=== PATIENT | female | born 1970 | race Caucasian/White ===

== ENCOUNTER 2018-07-08 08:01 | Day surgery (SDC) | payer MEDICARE, OTHER ==
[~2018-07-08 08:01] MED LIST: Lactated Ringers 1,000 ML IV SCH; Lidocaine 2% 5 ML SDV ONE; Midazolam 1 MG/ML 2 ML SDV ONE; Ondansetron 4 MG/2 ML SDV ONE; Propofol 200 MG/20 ML SDV ONE; Sodium Chloride 0.9% 10 ML Syringe FLUSH PRN; Sodium Chloride 0.9% 2.5 ML Syringe FLUSH PRN; ceFAZolin 2 GM in Premix Bag 1 BAG IV ONE; fentaNYL 250 MCG/5 ML SDV ONE
--- NOTE | 2018-07-08 08:55 | PCM.PREANE ---
Preanesthetic Assessment - Anesthesia/Transfusion/Family Hx Anesthesia History: Prior Anesthesia Without Reaction Other Type of Anesthesia Reaction Comment: DENIES ANY PROBLEMS WITH ANESTHESIA Family History of Anesthesia Reaction: No Transfusion History: Prior Transfusion Without Reaction Intubation History: Unknown - Review of Systems General: No Symptoms Pulmonary: No Symptoms Cardiovascular: No Symptoms Gastrointestinal: No Symptoms Neurological: No Symptoms Other: Reports: None - Physical Assessment O2 Sat by Pulse Oximetry: 94 Respiratory Rate: 15 Vital Signs: Last Vital Signs Temp 37.6 C 07/08/18 08:15 Pulse 88 07/08/18 08:15 Resp 15 07/08/18 08:15 BP 99/62 07/08/18 08:15 Pulse Ox 94 L 07/08/18 08:15 Height: 1.63 m Weight: 97.976 kg ASA Class: 3 Mental Status: Alert & Oriented x3 Airway Class: Mallampati = 3 Dentition: Reports: Normal Dentition Thyro-Mental Finger Breadths: 2 Mouth Opening Finger Breadths: 2 ROM/Head Extension: Full Lungs: Clear to Auscultation, Normal Respiratory Effort Cardiovascular: Regular Rate, Regular Rhythm - Allergies Allergies/Adverse Reactions: Allergies Allergy/AdvReac Type Severity Reaction Status Date / Time codeine Allergy Rash Verified 07/02/18 15:31 gluten Allergy Diarrhea Verified 07/02/18 15:31 ketorolac tromethamine Allergy Other Verified 07/02/18 15:31 [From Toradol] NSAIDS (Non-Steroidal Allergy Other Verified 07/02/18 15:31 Anti-Inflamma shellfish derived Allergy Diarrhea Verified 07/02/18 15:31 - Blood Blood Available: No - Anesthesia Plan Pre-Op Medication Ordered: None - Acknowledgements Anesthesia Type Planned: General Anesthesia Pt an Appropriate Candidate for the Planned Anesthesia: Yes Alternatives and Risks of Anesthesia Discussed w Pt/Guardian: Yes Pt/Guardian Understands and Agrees with Anesthesia Plan: Yes PreAnesthesia Questionnaire HEENT History: Reports: None Cardiovascular History: Reports: None Respiratory History: Reports: Sleep Apnea Other Respiratory History: uses CPAP Gastrointestinal History: Reports: Inflammatory Bowel Disease, Other (See Below ) (ulcerative colitis) Other Gastrointestinal History: has celiac disease Genitourinary History: Reports: None 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 (See Below) Other OB/BYN History: Menorrhagia Musculoskeletal History: Reports: Back Pain, Chronic, Fracture, Fibromyalgia, Neck Pain, Chronic, Osteoarthritis Other Musculoskeletal History: hx of fx wrist Neurological History: Reports: Other (See Below) Other Neuro History: 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, Arachnoiditis in mid and upper lumbar region, Meraolgia paresthetica , Nerve damage, 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, adhesions and scar tissue on spine due to surgeries Psychiatric History: Reports: Depression Endocrine/Metabolic History: Reports: Obesity/BMI 30+ Hematologic History: Reports: Blood Transfusion(s) Other Hematologic History: states had transfusion post evacuation of blood clot in back Immunologic History: Reports: None Oncologic (Cancer) History: Reports: None Dermatologic History: Reports: Other (See Below) Other Dermatologic History: Rosacia - Infectious Disease History Infectious Disease History: Reports: None - Past Surgical History Head Surgeries/Procedures: Reports: None GI Surgical History: Reports: Cholecystectomy Female Surgical History: Reports: Hysterectomy Neurological Surgical History: Reports: C-Spine, Lumbar Spine, Spinal Fusion, Other (See Below) Other Neurological Surgeries/Procedures: has had intrathecal pump implanted in abdomen for back pain Musculoskeletal Surgical History: Reports: Arthroscopic Knee, Other (See Below) Other Musculoskeletal Surgeries/Procedures:: evacuation of blood clot from lumbar spine 2 days post fusion - SUBSTANCE USE Smoking Status *Q: Never Smoker Recreational Drug Use History: No - HOME MEDS Home Medications: Home Meds Baclofen 15 mg PO BEDTIME 09/23/15 [History] Bupivacaine HCl/PF [Bupivacaine 0.25% Pump] 3.997 mg EPIDUR DAILY 09/23/15 [ History] DULoxetine HCl [Cymbalta] 60 mg PO QAM 09/23/15 [History] Gabapentin 300 mg PO BID 09/23/15 [History] azaTHIOprine [Imuran] 150 mg PO ACDINNER 09/23/15 [History] buPROPion [Wellbutrin] 75 mg PO DAILY 09/23/15 [History] cloNIDine HCl/PF [Clonidine Vial] 79.95 mg EPIDUR DAILY 09/23/15 [History] Cholecalciferol (Vitamin D3) [Vitamin D3] 1,000 unit PO DAILY 07/02/18 [History] Dicyclomine [Bentyl] 20 mg PO ASDIRECTED PRN 07/02/18 [History] InFLIXimab [Remicade] 10 mg IV ASDIRECTED 08/01/18 [History] - CURRENT (IN HOUSE) MEDS Current Meds: Current Medications Lactated Ringer's (Ringers, Lactated) 1,000 mls @ 125 mls/hr IV ASDIRECTED MADHU Last Admin: 07/08/18 08:48 Dose: 125 mls/hr Sodium Chloride (Saline Flush) 10 ml FLUSH ASDIRECTED PRN PRN Reason: Keep Vein Open Sodium Chloride (Saline Flush) 2.5 ml FLUSH ASDIRECTED PRN PRN Reason: Keep Vein Open Discontinued Medications Fentanyl (Sublimaze) Confirm Administered Dose 250 mcg .ROUTE .STK-MED ONE Stop: 07/08/18 06:55 Cefazolin Sodium/Dextrose 2 gm (/ Premix) 50 mls @ 100 mls/hr IV ONETIME ONE Stop: 07/07/18 10:42 Lidocaine (Xylocaine-Mpf 2%) Confirm Administered Dose 5 ml .ROUTE .STK-MED ONE Stop: 07/08/18 06:55 Midazolam HCl (Versed 1 Mg/Ml) Confirm Administered Dose 2 mg .ROUTE .STK-MED ONE Stop: 07/08/18 06:55 Ondansetron HCl (Zofran) Confirm Administered Dose 4 mg .ROUTE .STK-MED ONE Stop: 07/08/18 06:55 Propofol (Diprivan 20 Ml) Confirm Administered Dose 200 mg .ROUTE .STK-MED ONE Stop: 07/08/18 06:55
[2018-07-08] MEDS ORDERED: Sodium Chloride 0.9% 20 ML ONE (09:51)
[2018-07-08] MEDS ORDERED: ceFAZolin 1 GM Vial ONE (09:51)
[2018-07-08] MEDS ORDERED: ePHEDrine 50 MG/ML SDV ONE (09:52)
[2018-07-08] MEDS ORDERED: Succinylcholine 200 MG/10 ML MDV ONE (10:04)
[2018-07-08] MEDS: fentaNYL 100 MCG/2 ML SDV IVPUSH PRN ×4 (10:58→11:28)
--- NOTE | 2018-07-08 11:11 | PCM.OPNOTE ---
- General Post-Op/Procedure Note Date of Surgery/Procedure: 07/08/18 Operative Procedure(s): Right internal jugular port a cath placement Findings: right internal jugular port Pre Op Diagnosis: Poor venous access, crohns disease, RA Post-Op Diagnosis: same Anesthesia Technique: General LMA Primary Surgeon: Tangela Zee Condition: Good Free Text/Narrative:: Intake & Output 07/07/18 07/08/18 07/08/18 22:59 06:59 14:59 Intake Total 1300 Balance 1300
--- NOTE | 2018-07-08 11:23 | CR ---
EXAMINATION: Portable chest radiograph. HISTORY: For placement. FINDINGS: The trachea is midline. The cardiomediastinal silhouette is within normal limits. No pulmonary infilt rates, effusions or pneumothorax. There is a right-sided port catheter noted with tip in the distal S VC. Osseous structures appear unremarkable. IMPRESSION: No acute cardiopulmonary process.
[2018-07-08 12:46] VITALS: BP 110/65
[2018-07-08] MEDS ORDERED: Bupivacaine 0.5% 10 ML SDV ONE (14:08)
[2018-07-08] MEDS ORDERED: Heparin Sodium 100 Units/ML 3 ML Syringe ONE (14:09)
[2018-07-08] MEDS ORDERED: Lidocaine 1% 20 ML MDV ONE (14:09)
--- NOTE | 2018-07-08 15:12 | CR ---
EXAMINATION: Chest HISTORY: Portacatheter placement COMPARISON: None TECHNIQUE: Single view FINDINGS/IMPRESSION: Operative control films demonstrate a port catheter projecting over the SVC.
--- NOTE | 2018-07-08 22:25 | OR ---
SURGEON: JOSE BEJARANO MD DATE OF PROCEDURE: 07/08/2018 PREOPERATIVE DIAGNOSES: Poor venous access, rheumatoid arthritis, and Crohn's disease. POSTOPERATIVE DIAGNOSES: Poor venous access, rheumatoid arthritis, and Crohn's disease. PROCEDURE PERFORMED: Right internal jugular Port-A-Cath placement. ANESTHESIA: General LMA. FLUIDS: See anesthesia record. ESTIMATED BLOOD LOSS: 5 mL. FINDINGS: Right internal jugular Port-A-Cath placement. COMPLICATIONS: None. INDICATIONS: The patient is a 47-year-old female, who is receiving IV therapy for her rheumatoid arthritis and Crohn's disease. She has poor venous access and is in need of a more permanent form of venous access. The patient and I discussed the need for a Port-A-Cath. I discussed the procedure as well as the expected perioperative course. The patient previously had an anterior cervical neck fusion through a right lower neck incision, however, this does not appear to be involving the area of my operative site. I explained to her that I will attempt to place the Port-A-Cath on the right side, but if I cannot place it in the right internal jugular vein, I will attempt the left internal jugular vein. The patient and I discussed the risks including bleeding, infection, or damage to surrounding structures including hemothorax or pneumothorax. The patient verbalized understanding and wishes to proceed. PROCEDURE IN DETAIL: The patient was brought into the OR and placed on the OR table in supine position. A time-out was completed verifying the patient's name, age, date of , allergies, and procedure to be performed. General LMA anesthesia was induced. A shoulder roll was placed under the patient's shoulders and both arms were tucked to the patient's side. An ultrasound was used to verify the vascular anatomy of the right and left side of the neck. The right internal jugular vein was identified as well as it's associated right carotid artery. The vein appeared patent. The decision was made to attempt placement on the right side. The neck and chest were prepped and draped in the usual standard fashion. The patient was placed into Trendelenburg position. A sterile ultrasound probe was used to re-identify the right internal jugular vein. The skin overlying the vein was anesthetized with 1% lidocaine plain. Using ultrasound guidance, I placed a guide needle into the right internal jugular vein. A brisk return of venous blood was noted. A guidewire was then placed down the needle into the internal jugular vein and guided into the SVC. A small amount of ectopy was noted and the wire was pulled back. A C-arm was then brought in and a chest x-ray was taken. This verified that the guidewire was in the SVC. The guide needle was then removed and placed off the field. I then turned my attention to the right anterior chest wall. Marcaine 0.5% plain was used to anesthetize the area. A 15- blade was then used to make a 3 cm incision 2 fingerbreadths below the lateral clavicle. Cautery was used to dissect down to the level of subcutaneous fat. A subcutaneous pocket was then created. I then took an 11 blade and made a small regan in the skin overlying the guidewire on the neck. A tunneling device was used to tunnel the catheter tubing from the port site on the anterior chest wall up to the neck. A vascular sheath and dilator were then placed over the guidewire. I dilated the vein tract over the guidewire under fluoroscopic guidance. The dilator and guidewire were then removed and the catheter tubing was placed down the vascular sheath. Vascular sheath was then pulled away. Fluoroscopy was used to then pull the catheter tubing into the mid SVC. Good return of venous blood was noted at the distal end of the catheter. The catheter tubing was then trimmed to size and placed on the Port-A-Cath device. The Port-A-Cath was placed in the subcutaneous chest wall pocket and secured with 2-0 Prolene sutures on either side of the Port-A-Cath device. The port was then locked with 3 mL of heparinized saline. The subcutaneous chest wall pocket was closed with interrupted 3-0 Vicryl in the subcutaneous fat and a running 4-0 Monocryl stitch in the skin. The neck incision site was closed with interrupted 4-0 Monocryl. Steri-Strips and sterile dressings were applied. The patient tolerated the procedure well and was extubated and taken to PACU in stable condition. A chest x-ray was taken in the PACU, which showed good placement of the Port-A-Cath device. No evidence of hemothorax or pneumothorax. MARIA ANTONIA / KEREN /[id number] NATE
== END 2018-07-08 12:40 | disposition home or self-care (01) ==
LOC: MW.SDS 08:01
PROVIDERS: ATTEND Surgery
DX: K50.90 Crohn's disease, unspecified, without complications (principal); M06.9 Rheumatoid arthritis, unspecified; K90.0 Celiac disease; I87.8 Other specified disorders of veins; E66.9 Obesity, unspecified; Z68.37 Body mass index [BMI] 37.0-37.9, adult; G47.33 Obstructive sleep apnea (adult) (pediatric); Z99.89 Dependence on other enabling machines and devices; Z79.899 Other long term (current) drug therapy; Z88.5 Allergy status to narcotic agent; Z91.013 Allergy to seafood; Z91.018 Allergy to other foods; Z88.6 Allergy status to analgesic agent
CPT/HCPCS: 36571; 71045; 76000; C1788; J0330; J0690; J1642; J2250; J2405; J2704; J3010; J3490; J7120; 00532

== ENCOUNTER 2020-03-16 11:03 | Emergency (ER) | payer MEDICARE, OTHER ==
[2020-03-16] MEDS ORDERED: Alteplase 2 MG Vial IVPUSH ONE ×2 (12:28→12:50)
--- NOTE | 2020-03-16 13:16 | CR ---
Chest: 2 views of the chest are obtained. Comparison: Prior chest x-ray of 03/03/20. Right sided infusion port is seen. Previous cervical spine surgery is present. Heart size and mediastinum are normal. Lungs are clear with no acute parenchymal change. No acute bony abnormality is appreciated. Impression: 1. Findings as noted above. 2. Nothing acute is appreciated on 2 view chest x-ray. Diagnostic code #2 Study was dictated in MDT
[2020-03-16 13:18] LABS: CARBON DIOXIDE,CO2 26.1 mmol/L (21.0-32.0); POTASSIUM,K 4.2 mmol/L (3.5-5.1)
[2020-03-16] MEDS ORDERED: Sodium Chloride 0.9% 1,000 ML IV ONE ×2 (13:22→14:35)
[2020-03-16] MEDS ORDERED: Iopamidol 755 MG/ML 500 ML Multipack Bottle IVPUSH STA (14:31)
--- NOTE | 2020-03-16 14:52 | CT ---
CT chest Technique: Multiple axial sections were obtained from above the lung apices inferiorly through the lung bases. Intravenous contrast was utilized. Comparison: No prior chest CT is available, prior chest x-ray performed on the same day is available. Findings: No pericardial thickening is seen. Aorta shows no aneurysm. Mediastinum and hilar regions show no adenopathy. No axillary adenopathy is identified. Lungs are clear with no acute parenchymal change. Bone window settings were reviewed which shows no acute osseous finding. Impression: 1. Nothing acute is appreciated on CT study of the chest. Diagnostic code #1 Study was dictated in MDT
--- NOTE | 2020-03-16 14:52 | CT ---
CT abdomen and pelvis Technique: Multiple axial sections were obtained from above the dome of the diaphragm inferiorly through the pubic symphysis. Intravenous contrast was utilized. No oral contrast has been given. Comparison: Prior CT abdomen and pelvis exam of 09/23/15. Findings: Small amount of fat appears to be present within the liver next to the ligamentum teres fissure which is usually considered as normal. Liver shows no additional abnormality. Spleen appears within normal limits. Adrenal glands are within normal limits. Pancreas is normal. Surgical clips are seen from prior cholecystectomy. Kidneys show symmetric contrast enhancement without hydronephrosis or mass. No ureteral dilatation or ureteral stone is seen. Aorta shows no aneurysm. No retroperitoneal adenopathy or mesenteric abnormalities are seen. No pelvic mass or adenopathy is seen. No free fluid or inflammatory change is seen. Slight increased stool is noted throughout the colon. Bone window settings were reviewed which shows no acute osseous finding. Prior lumbar spine surgery is noted. Impression: 1. Increased stool throughout the colon. 2. Other findings which are felt to be incidental. 3. Nothing acute is appreciated on CT study of the abdomen and pelvis. Diagnostic code #2 Study was dictated in MDT
--- NOTE | 2020-03-16 14:52 | CT ---
Head CT Technique: Multiple axial sections through the brain were obtained. Intravenous contrast was not utilized. Comparison: Prior head CT study of 12/30/19 is available. Findings: Ventricles along with basal cisterns and sulci over the convexities are within normal limits for the patient's age. No abnormal parenchymal densities are seen. No evidence of intracranial hemorrhage. No midline shift or mass effect is seen. Visualized mastoid sinuses and visualized paranasal sinuses show nothing acute. No acute calvarial finding is seen. Impression: 1. Nothing acute is appreciated on noncontrast head CT study. Diagnostic code #1 Study was dictated in MDT
--- NOTE | 2020-03-16 16:13 | EDM.PDOC ---
ED HPI GENERAL MEDICAL PROBLEM - General Chief Complaint: Fever Stated Complaint: FEVER Time Seen by Provider: 03/16/20 12:00 Source of Information: Reports: Patient, Old Records, Provider History Limitations: Reports: No Limitations - History of Present Illness INITIAL COMMENTS - FREE TEXT/NARRATIVE: Patient is a 49-year-old female with a past medical history of ulcerative colitis as well as chronic low back pain presenting with a chief complaint of fever and headaches. Patient has had these headaches since November and has them almost daily. The headaches are frontal region without radiation. Nothing seems to make the headaches better or worse. Patient has had numerous outpatient studies done for these headaches including an MRI which did not reveal a source of the headache. In about the last month, the patient started developing fevers. Fevers are intermittent and ranging anywhere from 101-103. Only associated symptoms include sore throat, body aches. Patient is been feeling increasingly fatigued and recently finished a 10-day course of Bactrim without any relief of symptoms. Dr. Gunter is the patient's primary care physician and he informed me that he is worked the patient up for coronavirus, strep throat, influenza, pneumonia does not sound the source of the patient's fever. He is concerned because the patient has an intrathecal pain device which could be a source of infection to her CSF. Patient is denying any abdominal pain, vomiting, diarrhea. Patient has not had any recent travel and is been self isolating since the fevers started. Pmhx: Per HPI Pshx: Lumbar fusion, intrathecal device placement Family Hx: noncontributory Smoking history? no Etoh use? none Drug use? none In addition to that documented in the HPI above, the additional ROS was obtained : Constitutional: Per HPI Eyes: Denies vision changes ENMT: Per HPI CV: Denies chest pain Resp: Denies SOB GI: Denies vomiting or diarrhea : Denies painful urination MSK: Denies recent trauma Skin: Denies new rashes Neuro: Denies new numbness or tingling or weakness Endocrine: Denies unexpected weight loss Heme: Denies bleeding disorders I have reviewed the triage vital signs Const: Well-appearing and comfortable. Well nourished, well developed, appears stated age Eyes: PERRL, no conjunctival injection HENT: Oropharynx is within normal limits. No tonsillar swelling or exudates. NCAT, Neck supple without meningismus CV: RRR, Warm, well-perfused extremities RESP: CTAB, Unlabored respiratory effort GI: soft, non-tender, non-distended, no masses MSK: No gross deformities appreciated Skin: Warm, dry. 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 Sensation and motor function of extremities grossly intact. Kernig and Brudzinski negative. Psych: Appropriate mood and affect Assessment and plan: Patient is a 49-year-old female presenting with a chief complaint of fever and body aches. Patient has had the symptoms off and on for the past 1 month. Patient arrived in the ER and was tachycardic and had a temperature of 100.3. Patient was well in appearance and had an unremarkable ER course. This case was discussed at length with Dr. Gunter the patient's primary care physician and considerations were made for previous work-up that he had already done. Given the chronicity of these symptoms, sepsis seems unlikely and other causes of fever and a patient like this were considered. Lab testing revealed elevated ESR and lactic acid. The lactic acid improved after administration of IV fluids. CRP was negative. HIV test was negative. Chest x-ray and CT scans did not demonstrate any acute pathology that would be indicative of infection. Patient's urinalysis was also negative for evidence of infection. The patient had a intrathecal port was present for long period of time but could be because of having an infection, particularly of fungal etiology given the patient's immunocompromise state. A lumbar puncture was performed by anesthesiology given the patient's complex anatomy with prior lumbar surgeries as well as intrathecal port being present. Lumbar puncture demonstrated only slightly elevated protein, normal glucose, normal white blood cell count corrected for a traumatic tap. Daija ink stain and cryptococcal antigen as well as cultures were sent as well but will not return for several days. At this point, the patient does not meet any sort of emergent treatment criteria or admission criteria. Patient was counseled on the results of these tests. Given return precautions. Patient will be discharged home. headache Pain Score (Numeric/FACES): 8 - Related Data Allergies Allergy/AdvReac Type Severity Reaction Status Date / Time codeine Allergy Rash Verified 07/08/18 16:12 gluten Allergy Diarrhea Verified 07/08/18 16:12 ketorolac tromethamine Allergy Other Verified 07/08/18 16:12 [From Toradol] NSAIDS (Non-Steroidal Allergy Other Verified 07/08/18 16:12 Anti-Inflamma shellfish derived Allergy Diarrhea Verified 07/08/18 16:12 Home Meds: Home Meds Baclofen 15 mg PO BEDTIME 09/23/15 [History] Bupivacaine HCl/PF [Bupivacaine 0.25% Pump] 0 mg EPIDUR DAILY 09/23/15 [History] DULoxetine HCl [Cymbalta] 60 mg PO QAM 09/23/15 [History] Gabapentin 300 mg PO BID 09/23/15 [History] azaTHIOprine [Imuran] 150 mg PO ACDINNER 09/23/15 [History] cloNIDine HCl/PF [Clonidine Vial] 0 mg EPIDUR DAILY 09/23/15 [History] Cholecalciferol (Vitamin D3) [Vitamin D3] 1,000 unit PO DAILY 07/02/18 [History] Dicyclomine [Bentyl] 20 mg PO ASDIRECTED PRN 07/02/18 [History] InFLIXimab [Remicade] 10 mg IV ASDIRECTED 07/02/18 [History] Acetaminophen [Tylenol Arthritis] 650 mg PO BID 03/16/20 [History] Verapamil [Calan] 40 mg PO DAILY 03/16/20 [History] Past Medical History HEENT History: Reports: None Cardiovascular History: Reports: None Respiratory History: Reports: Sleep Apnea Other Respiratory History: Has machine, instructed to bring day of surgery Gastrointestinal History: Reports: Celiac Disease Other Gastrointestinal History: Crohns Disease, ulcerative colitis Genitourinary History: Reports: None CONTRACT ASSISTANT History: Reports: Other (See Below) Other CONTRACT ASSISTANT History: Menorrhagia Musculoskeletal History: Reports: Back Pain, Chronic, Fracture Other Musculoskeletal History: hx: fracturing wrist, Chronic Pain to back (Lower ) w/arthritis Neurological History: Reports: Other (See Below) Other Neuro History: Cervical neuropathy with peristant lower extremity spasicity, Arachnoiditis in mid and upper lumbar region, Meraolgia paresthetica , Nerve damage, 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, adhesions and scar tissue on spine due to surgeries Psychiatric History: Reports: Anxiety, Depression Endocrine/Metabolic History: Reports: Obesity/BMI 30+ Hematologic History: Reports: Anemia, Blood Transfusion(s) Other Hematologic History: Believe 2 units given at time of neck Disc replacement "they knicked a vein" Immunologic History: Reports: None Oncologic (Cancer) History: Reports: None Dermatologic History: Reports: Other (See Below) Other Dermatologic History: Rosacia - Infectious Disease History Infectious Disease History: Reports: Chicken Pox, MRSA - Past Surgical History GI Surgical History: Reports: Cholecystectomy Female Surgical History: Reports: Hysterectomy Neurological Surgical History: Reports: Lumbar Spine Other Neurological Surgeries/Procedures: Disc Replacement in Neck, Lumbar surgery L4-5 & L 5-Sacral Other Musculoskeletal Surgeries/Procedures:: back fusion procedure. artificial disc in neck Social & Family History - Family History Family Medical History: Noncontributory - Tobacco Use Smoking Status *Q: Unknown Ever Smoked - Caffeine Use Caffeine Use: Reports: Coffee, Soda - Recreational Drug Use Recreational Drug Use: No ED ROS GENERAL - Review of Systems Review Of Systems: See Below ED EXAM, GENERAL - Physical Exam Exam: See Below Course - Vital Signs Last Recorded V/S: Last Vital Signs Temp 37.1 C 03/16/20 11:13 Pulse 97 03/16/20 17:23 Resp 16 03/16/20 17:23 BP 114/80 03/16/20 17:23 Pulse Ox 97 03/16/20 17:23 - Orders/Labs/Meds Orders: Active Orders 24 hr Category Date Time Status C. NEOFORMANS-LPA [REF] Stat Lab 03/16/20 15:52 Received CULTURE BLOOD [BC] Stat Lab 03/16/20 12:40 Received CULTURE BLOOD [BC] Stat Lab 03/16/20 14:15 Received CULTURE CSF + SMEAR [RM] Stat Lab 03/16/20 15:52 Received FUNGUS CULTURE [MREF] Stat Lab 03/16/20 15:52 Received MISC TEST Stat Lab 03/16/20 15:52 Received Blood Culture x2 Reflex Set [OM.PC] Stat Oth 03/16/20 11:38 Ordered Labs: Laboratory Tests 03/16/20 03/16/20 03/16/20 Range/Units 12:10 12:40 12:40 WBC 6.32 (4.0-11.0) K/uL RBC 4.26 L (4.30-5.90) M/uL Hgb 12.6 (12.0-16.0) g/dL Hct 38.7 (36.0-46.0) % MCV 90.8 (80.0-98.0) fL MCH 29.6 (27.0-32.0) pg MCHC 32.6 (31.0-37.0) g/dL RDW Std Deviation 51.4 (28.0-62.0) fl RDW Coeff of Xochitl 16 H (11.0-15.0) % Plt Count 343 (150-400) K/uL MPV 10.40 (7.40-12.00) fL Neut % (Auto) 60.3 (48.0-80.0) % Lymph % (Auto) 25.6 (16.0-40.0) % Quay % (Auto) 11.9 (0.0-15.0) % Eos % (Auto) 1.9 (0.0-7.0) % Baso % (Auto) 0.3 (0.0-1.5) % Neut # (Auto) 3.8 (1.4-5.7) K/uL Lymph # (Auto) 1.6 (0.6-2.4) K/uL Quay # (Auto) 0.8 (0.0-0.8) K/uL Eos # (Auto) 0.1 (0.0-0.7) K/uL Baso # (Auto) 0.0 (0.0-0.1) K/uL Nucleated RBC % 0.0 /100WBC Nucleated RBCs # 0 K/uL ESR (0-19) mm/hr Lactate 2.4 H* (0.20-2.00) mmol/L Sodium (136-145) mmol/L Potassium (3.5-5.1) mmol/L Chloride (98-107) mmol/L Carbon Dioxide (21.0-32.0) mmol/L BUN (7.0-18.0) mg/dL Creatinine (0.6-1.0) mg/dL Est Cr Clr Drug Dosing mL/min Estimated GFR (MDRD) ml/min Glucose (74-106) mg/dL Calcium (8.5-10.1) mg/dL Total Bilirubin (0.2-1.0) mg/dL AST (15-37) IU/L ALT (14-63) IU/L Alkaline Phosphatase (46-116) U/L C-Reactive Protein (0.00-0.90) mg/dL Total Protein (6.4-8.2) g/dL Albumin (3.4-5.0) g/dL Globulin (2.6-4.0) g/dL Albumin/Globulin Ratio (0.9-1.6) Lipase (73-393) U/L Urine Color YELLOW Urine Appearance CLEAR Urine pH 6.0 (5.0-8.0) Ur Specific [place] 1.025 (1.001-1.035) Urine Protein NEGATIVE (NEGATIVE) mg/dL Urine Glucose (UA) NEGATIVE (NEGATIVE) mg/dL Urine Ketones TRACE H (NEGATIVE) mg/dL Urine Occult Blood TRACE-INTACT H (NEGATIVE) Urine Nitrite NEGATIVE (NEGATIVE) Urine Bilirubin NEGATIVE (NEGATIVE) Urine Urobilinogen 0.2 (<2.0) EU/dL Ur Leukocyte Esterase NEGATIVE (NEGATIVE) Urine RBC 0-2 (0-2/HPF) Urine WBC 0-2 (0-5/HPF) Ur Epithelial Cells FEW (NONE-FEW) Urine Bacteria 2+ H (NEGATIVE) CSF Appearance CSF Color CSF WBC (0-5) /uL CSF RBC (0-0) /uL CSF Mononuclear Cells % CSF Polymorphonuclear % CSF Glucose (40-70) mg/dL CSF Total Protein (15-45) mg/dL HIV 1&2 Ag/Ab, 4th Gen (<1.0) INDEX 03/16/20 03/16/20 03/16/20 Range/Units 12:40 12:40 12:40 WBC (4.0-11.0) K/uL RBC (4.30-5.90) M/uL Hgb (12.0-16.0) g/dL Hct (36.0-46.0) % MCV (80.0-98.0) fL MCH (27.0-32.0) pg MCHC (31.0-37.0) g/dL RDW Std Deviation (28.0-62.0) fl RDW Coeff of Xochitl (11.0-15.0) % Plt Count (150-400) K/uL MPV (7.40-12.00) fL Neut % (Auto) (48.0-80.0) % Lymph % (Auto) (16.0-40.0) % Quay % (Auto) (0.0-15.0) % Eos % (Auto) (0.0-7.0) % Baso % (Auto) (0.0-1.5) % Neut # (Auto) (1.4-5.7) K/uL Lymph # (Auto) (0.6-2.4) K/uL Quay # (Auto) (0.0-0.8) K/uL Eos # (Auto) (0.0-0.7) K/uL Baso # (Auto) (0.0-0.1) K/uL Nucleated RBC % /100WBC Nucleated RBCs # K/uL ESR 32 H (0-19) mm/hr Lactate (0.20-2.00) mmol/L Sodium 137 (136-145) mmol/L Potassium 4.2 (3.5-5.1) mmol/L Chloride 100 (98-107) mmol/L Carbon Dioxide 26.1 (21.0-32.0) mmol/L BUN 7 (7.0-18.0) mg/dL Creatinine 1.0 (0.6-1.0) mg/dL Est Cr Clr Drug Dosing 60.06 mL/min Estimated GFR (MDRD) 59.4 ml/min Glucose 94 (74-106) mg/dL Calcium 8.9 (8.5-10.1) mg/dL Total Bilirubin 0.2 (0.2-1.0) mg/dL AST 32 (15-37) IU/L ALT 51 (14-63) IU/L Alkaline Phosphatase 93 (46-116) U/L C-Reactive Protein 0.70 (0.00-0.90) mg/dL Total Protein 8.1 (6.4-8.2) g/dL Albumin 3.7 (3.4-5.0) g/dL Globulin 4.4 H (2.6-4.0) g/dL Albumin/Globulin Ratio 0.8 L (0.9-1.6) Lipase 113 (73-393) U/L Urine Color Urine Appearance Urine pH (5.0-8.0) Ur Specific [place] (1.001-1.035) Urine Protein (NEGATIVE) mg/dL Urine Glucose (UA) (NEGATIVE) mg/dL Urine Ketones (NEGATIVE) mg/dL Urine Occult Blood (NEGATIVE) Urine Nitrite (NEGATIVE) Urine Bilirubin (NEGATIVE) Urine Urobilinogen (<2.0) EU/dL Ur Leukocyte Esterase (NEGATIVE) Urine RBC (0-2/HPF) Urine WBC (0-5/HPF) Ur Epithelial Cells (NONE-FEW) Urine Bacteria (NEGATIVE) CSF Appearance CSF Color CSF WBC (0-5) /uL CSF RBC (0-0) /uL CSF Mononuclear Cells % CSF Polymorphonuclear % CSF Glucose (40-70) mg/dL CSF Total Protein (15-45) mg/dL HIV 1&2 Ag/Ab, 4th Gen < 0.1 (<1.0) INDEX 03/16/20 03/16/20 03/16/20 Range/Units 15:52 15:52 16:23 WBC (4.0-11.0) K/uL RBC (4.30-5.90) M/uL Hgb (12.0-16.0) g/dL Hct (36.0-46.0) % MCV (80.0-98.0) fL MCH (27.0-32.0) pg MCHC (31.0-37.0) g/dL RDW Std Deviation (28.0-62.0) fl RDW Coeff of Xochitl (11.0-15.0) % Plt Count (150-400) K/uL MPV (7.40-12.00) fL Neut % (Auto) (48.0-80.0) % Lymph % (Auto) (16.0-40.0) % Quay % (Auto) (0.0-15.0) % Eos % (Auto) (0.0-7.0) % Baso % (Auto) (0.0-1.5) % Neut # (Auto) (1.4-5.7) K/uL Lymph # (Auto) (0.6-2.4) K/uL Quay # (Auto) (0.0-0.8) K/uL Eos # (Auto) (0.0-0.7) K/uL Baso # (Auto) (0.0-0.1) K/uL Nucleated RBC % /100WBC Nucleated RBCs # K/uL ESR (0-19) mm/hr Lactate 1.2 (0.20-2.00) mmol/L Sodium (136-145) mmol/L Potassium (3.5-5.1) mmol/L Chloride (98-107) mmol/L Carbon Dioxide (21.0-32.0) mmol/L BUN (7.0-18.0) mg/dL Creatinine (0.6-1.0) mg/dL Est Cr Clr Drug Dosing mL/min Estimated GFR (MDRD) ml/min Glucose (74-106) mg/dL Calcium (8.5-10.1) mg/dL Total Bilirubin (0.2-1.0) mg/dL AST (15-37) IU/L ALT (14-63) IU/L Alkaline Phosphatase (46-116) U/L C-Reactive Protein (0.00-0.90) mg/dL Total Protein (6.4-8.2) g/dL Albumin (3.4-5.0) g/dL Globulin (2.6-4.0) g/dL Albumin/Globulin Ratio (0.9-1.6) Lipase (73-393) U/L Urine Color Urine Appearance Urine pH (5.0-8.0) Ur Specific [place] (1.001-1.035) Urine Protein (NEGATIVE) mg/dL Urine Glucose (UA) (NEGATIVE) mg/dL Urine Ketones (NEGATIVE) mg/dL Urine Occult Blood (NEGATIVE) Urine Nitrite (NEGATIVE) Urine Bilirubin (NEGATIVE) Urine Urobilinogen (<2.0) EU/dL Ur Leukocyte Esterase (NEGATIVE) Urine RBC (0-2/HPF) Urine WBC (0-5/HPF) Ur Epithelial Cells (NONE-FEW) Urine Bacteria (NEGATIVE) CSF Appearance CLEAR CSF Color COLORLESS CSF WBC 2 (0-5) /uL CSF RBC 99 H (0-0) /uL CSF Mononuclear Cells 50.0 % CSF Polymorphonuclear 50.0 % CSF Glucose 64.0 (40-70) mg/dL CSF Total Protein 50 H (15-45) mg/dL HIV 1&2 Ag/Ab, 4th Gen (<1.0) INDEX Meds: Medications Discontinued Medications Generic Name Dose Route Start Last Admin Trade Name Freq PRN Reason Stop Dose Admin Alteplase, Recombinant 2 mg 03/16/20 12:50 03/16/20 12:51 Cathflo Activase IVPUSH 03/16/20 12:51 Not Given ONETIME ONE Sodium Chloride 1,000 mls @ 999 mls/hr 03/16/20 13:22 03/16/20 13:23 Normal Saline IV 03/16/20 14:22 999 mls/hr .Bolus ONE Administration Sodium Chloride 1,000 mls @ 1,000 mls/hr 03/16/20 14:35 03/16/20 14:47 Normal Saline IV 03/16/20 15:34 1,000 mls/hr .Bolus ONE Administration Iopamidol 100 ml 03/16/20 14:31 03/16/20 14:32 Isovue Multipack-370 (76%) IVPUSH 03/16/20 14:32 100 ml ONETIME STA Administration Departure - Departure Time of Disposition: 18:09 Disposition: Home, Self-Care 01 Clinical Impression: Fever - Discharge Information Instructions: Fever, Adult, [id number] Referrals: Lan Gunter MD [Primary Care Provider] - Forms: ED Department Discharge Care Plan Goals: The following information is given to patients seen in the emergency department who are being discharged to home. This information is to outline your options for follow-up care. We provide all patients seen in our emergency department with a follow-up referral. The need for follow-up, as well as the timing and circumstances, are variable depending upon the specifics of your emergency department visit. If you don't have a primary care physician on staff, we will provide you with a referral. We always advise you to contact your personal physician following an emergency department visit to inform them of the circumstance of the visit and for follow-up with them and/or the need for any referrals to a consulting specialist. The emergency department will also refer you to a specialist when appropriate. This referral assures that you have the opportunity for follow-up care with a specialist. All of these measure are taken in an effort to provide you with optimal care, which includes your follow-up. Under all circumstances we always encourage you to contact your private physician who remains a resource for coordinating your care. When calling for follow-up care, please make the office aware that this follow-up is from your recent emergency room visit. If for any reason you are refused follow-up, please contact the [facility] Emergency Department at and asked to speak to the emergency department charge nurse. [facility] [address] [place] [id number] [facility] [address] [place] [id number] Sepsis Event Note - Evaluation Sepsis Screening Result: Possible Sepsis Risk - Focused Exam Vital Signs: Vital Signs Temp Pulse Resp BP Pulse Ox 03/16/20 17:23 97 16 114/80 97 03/16/20 16:26 96 18 108/71 93 L 03/16/20 14:48 98 16 115/75 98 03/16/20 14:00 95 16 127/77 97 03/16/20 12:51 95 16 95 03/16/20 11:25 101 H 03/16/20 11:13 37.1 C 130 H 18 141/90 H 97 Date Exam was Performed: 03/16/20 Time Exam was Performed: 18:08 - My Orders Last 24 Hours: My Active Orders 03/16/20 11:38 Blood Culture x2 Reflex Set [OM.PC] Stat 03/16/20 12:40 CULTURE BLOOD [BC] Stat 03/16/20 14:15 CULTURE BLOOD [BC] Stat 03/16/20 15:52 C. NEOFORMANS-LPA [REF] Stat CULTURE CSF + SMEAR [RM] Stat FUNGUS CULTURE [MREF] Stat MISC TEST Stat - Assessment/Plan Last 24 Hours: My Active Orders 03/16/20 11:38 Blood Culture x2 Reflex Set [OM.PC] Stat 03/16/20 12:40 CULTURE BLOOD [BC] Stat 03/16/20 14:15 CULTURE BLOOD [BC] Stat 03/16/20 15:52 C. NEOFORMANS-LPA [REF] Stat CULTURE CSF + SMEAR [RM] Stat FUNGUS CULTURE [MREF] Stat MISC TEST Stat
--- NOTE | 2020-03-16 16:22 | PCM.SN ---
- Free Text/Narrative Note: Called to do spinal tap on patient Cyndi Dooley in emergency room to r/o meningitis. Patient had h/o lower back surgery at L4-5 level as well as placement of epidural pump for infusion of pain medications for chronic pain syndrome at about L1 level. Patient placed in sitting position, lower back prepped and draped. Local lidocaine skin numbing. Spinal tap performed at L2-3 level without problems. Spinal fluid collected in all 4 tubes. Patient placed in supine position for 1 hour. She tolerated procedure well. TeleHealth - TeleHealth Patient Service Facility: [facility]: [facility] Informed Consent: Telemedicine Audio/Visual Informed Consent: The risks, benefits, and alternatives to the telehealth visit were explained to the patient and the patient consented to this modality of care. The telehealth visit was carried out via a secure, web-based conferencing system. This telemedicine service was a real-time, two-way interactive video and communication between the patient and the provider. All the parties involved were identified and approved by the patient prior to the visit. Any physical exam was assisted by the patient. Unless noted otherwise, the provider was located at their usual clinic location , and the patient was at their place of residence. Patient identity was confirmed by having the patient state their name and date of . All communications with the patient (verbal, audiovisual, and written) were documented in the patients medical record per documentation standards.
[2020-03-16 19:07] VITALS: BP 125/80; PULSE 94
== END 2020-03-16 19:06 | disposition home or self-care (01) ==
LOC: MW.ED 11:03
DX: R50.9 Fever, unspecified (principal); E66.9 Obesity, unspecified; F41.9 Anxiety disorder, unspecified; F32.9 Major depressive disorder, single episode, unspecified; Z88.5 Allergy status to narcotic agent; Z91.09 Other allergy status, other than to drugs and biological substances; Z88.8 Allergy status to other drugs, medicaments and biological substances; Z91.013 Allergy to seafood; Z68.39 Body mass index [BMI] 39.0-39.9, adult
CPT/HCPCS: 36415; 62270; 70450; 70450-26; 71046; 71046-26; 71260; 71260-26; 74177; 74177-26; 80053; 81001; 82945; 83605; 83690; 84157; 85025; 85652; 86140; 87040; 87070; 87102; 87205; 87389; 87483; 87999; 89050; 96360; 96361; 99284; 99284-25; J1642; J2997; J7030; Q9967

== ENCOUNTER 2023-12-17 23:01 | Emergency (ER) | payer MEDICARE, OTHER ==
[2023-12-17 23:54] LABS: BASOPHILS ABSOLUTE AUTO 0.04 K/uL (0.00-0.20); BASOPHILS PERCENT AUTO 0.3 % (0.0-1.0); EOSINOPHILS ABSOLUTE AUTO 0.06 K/uL (0.00-0.45); EOSINOPHILS PERCENT AUTO 0.4 % (0.0-6.0); HEMATOCRIT 40.2 % (37.0-47.0); IMMATURE GRAN ABSOLUTE AUTO 0.04 K/uL (0.00-0.05); IMMATURE GRAN PERCENT AUTO 0.3 % (0.0-0.4); LYMPHOCYTES ABSOLUTE AUTO 2.23 K/uL (1.00-4.80); LYMPHOCYTES PERCENT AUTO 16.1 % (24.0-44.0); MEAN CORPUSCULAR HEMOGLOBIN 28.9 pg (28.0-32.0); MEAN CORPUSCULAR HGB CONC 32.3 g/dL (32.0-36.0); MEAN CORPUSCULAR VOLUME 89.3 fL (83.0-99.0); MEAN PLATELET VOLUME 10.4 fL (9.4-12.3); MONOCYTES ABSOLUTE AUTO 1.18 K/uL (0.00-0.80); MONOCYTES PERCENT AUTO 8.5 % (0.0-8.0); NEUTROPHILS ABSOLUTE AUTO 10.26 K/uL (1.80-7.70); NEUTROPHILS PERCENT AUTO 74.4 % (41.0-71.0); PLATELET COUNT,PLT 388 K/uL (150-400); WHITE BLOOD CELL COUNT,WBC 13.81 K/uL (3.9-11.3)
[2023-12-18] MEDS ORDERED: Ondansetron 4 MG/2 ML SDV IVPUSH ONE (00:12)
[2023-12-18] MEDS ORDERED: Morphine 4 MG/ML Syringe IVPUSH ONE (00:12)
[2023-12-18 00:22] LABS: BLOOD UREA NITROGEN,BUN 7 mg/dL (7.0-18.0); CALCIUM 10.4 mg/dL (8.5-10.1); CARBON DIOXIDE,CO2 30.9 mmol/L (21.0-32.0); CHLORIDE,CL 100 mmol/L (98-107); CREATININE 0.9 mg/dL (0.6-1.0); EST CRCL DRUG DOSING (CG) 63.86 mL/min; GLUCOSE RANDOM 143 mg/dL (74-106); POTASSIUM,K 4.5 mmol/L (3.5-5.1); SODIUM,NA 141 mmol/L (136-145)
[2023-12-18] MEDS ORDERED: Iopamidol 755 MG/ML 500 ML Multipack Bottle IVPUSH STA (00:24)
[2023-12-18 00:27] LABS: ESTIMATED GFR 77 mL/min (>60)
[2023-12-18 02:14] VITALS: BP 138/89; PULSE 90
== END 2023-12-18 02:15 | disposition home or self-care (01) ==
LOC: MW.ED 23:01
DX: R07.89 Other chest pain (principal); E66.9 Obesity, unspecified; Z88.6 Allergy status to analgesic agent; Z88.5 Allergy status to narcotic agent; Z91.018 Allergy to other foods; Z91.013 Allergy to seafood; Z79.899 Other long term (current) drug therapy; Z68.39 Body mass index [BMI] 39.0-39.9, adult
CPT/HCPCS: 36415; 71045; 71275; 80048; 84484; 85025; 93005; 96374; 96375; 99285; J2270; J2405; Q9967; 93010; 99284

== ENCOUNTER 2023-12-18 15:44 | Emergency (ER) | payer MEDICARE, OTHER ==
[2023-12-18] MEDS ORDERED: Ondansetron 4 MG/2 ML SDV IVPUSH ONE (16:19)
[2023-12-18] MEDS ORDERED: HYDROmorphone 1 MG/ML Syringe IVPUSH ONE ×2 (16:19→20:59)
[2023-12-18] MEDS ORDERED: Famotidine 20 MG/2 ML SDV IVPUSH ONE (16:21)
[2023-12-18] MEDS ORDERED: Alum Hydro/Mag Hydro/Simeth XS 15 ML, Lidocaine 2% 5 ML PO ONE ×2 (16:21)
[2023-12-18] MEDS ORDERED: Sodium Chloride 0.9% 1,000 ML IV ONE (16:22)
[2023-12-18] MEDS ORDERED: Lidocaine 4% 1 each Patch TOP STA (16:26)
[2023-12-18 18:30] LABS: BASOPHILS ABSOLUTE AUTO 0.04 K/uL (0.00-0.20); BASOPHILS PERCENT AUTO 0.3 % (0.0-1.0); EOSINOPHILS ABSOLUTE AUTO 0.04 K/uL (0.00-0.45); EOSINOPHILS PERCENT AUTO 0.3 % (0.0-6.0); HEMATOCRIT 36.4 % (37.0-47.0); HEMOGLOBIN 12.1 g/dL (12.0-16.0); IMMATURE GRAN ABSOLUTE AUTO 0.04 K/uL (0.00-0.05); IMMATURE GRAN PERCENT AUTO 0.3 % (0.0-0.4); LYMPHOCYTES ABSOLUTE AUTO 2.65 K/uL (1.00-4.80); LYMPHOCYTES PERCENT AUTO 18.9 % (24.0-44.0); MEAN CORPUSCULAR HEMOGLOBIN 29.2 pg (28.0-32.0); MEAN CORPUSCULAR HGB CONC 33.2 g/dL (32.0-36.0); MEAN CORPUSCULAR VOLUME 87.9 fL (83.0-99.0); MEAN PLATELET VOLUME 10.3 fL (9.4-12.3); MONOCYTES ABSOLUTE AUTO 1.27 K/uL (0.00-0.80); MONOCYTES PERCENT AUTO 9.1 % (0.0-8.0); NEUTROPHILS ABSOLUTE AUTO 9.96 K/uL (1.80-7.70); NEUTROPHILS PERCENT AUTO 71.1 % (41.0-71.0); PLATELET COUNT,PLT 367 K/uL (150-400); RED BLOOD CELL COUNT 4.14 M/uL (4.10-5.30)
[2023-12-18 18:50] LABS: INR 0.99 (0.86-1.11); PTT,PARTIAL THROMBOPLSTIN TIME 29.1 SEC (23.9-30.7)
[2023-12-18 19:13] LABS: A/G RATIO 0.7 (0.9-1.6); ALBUMIN 3.1 g/dL (3.4-5.0); BILIRUBIN TOTAL 0.3 mg/dL (0.2-1.0); CALCIUM 9.1 mg/dL (8.5-10.1); CARBON DIOXIDE,CO2 26.3 mmol/L (21.0-32.0); CREATININE 0.9 mg/dL (0.6-1.0); EST CRCL DRUG DOSING (CG) 63.86 mL/min; MAGNESIUM 1.9 mg/dL (1.8-2.4); POTASSIUM,K 3.8 mmol/L (3.5-5.1); PROTEIN TOTAL,TP 7.5 g/dL (6.4-8.2)
[2023-12-18] MEDS ORDERED: Iopamidol 755 MG/ML 500 ML Multipack Bottle IVPUSH STA (19:37)
[2023-12-18] MEDS ORDERED: Naloxone 0.4 MG/ML SDV IVPUSH PRN (20:59)
[2023-12-18 22:57] LABS: APPEARANCE,URINE SLT CLOUDY; BILIRUBIN,URINE NEGATIVE (NEGATIVE); GLUCOSE,URINE NEGATIVE (NEGATIVE); KETONES,URINE TRACE mg/dL (NEGATIVE); LEUKOCYTE ESTERASE,URINE NEGATIVE (NEGATIVE); NITRITE,URINE NEGATIVE (NEGATIVE); OCCULT BLOOD,URINE NEGATIVE (NEGATIVE); PH,URINE 5.5 (5.0-8.0); PROTEIN,URINE NEGATIVE (NEGATIVE); UROBILINOGEN,URINE 0.2 EU/dL (<2.0)
[2023-12-18 22:59] LABS: COLOR,URINE DARK YELLOW
[2023-12-19 00:47] VITALS: BP 136/88; PULSE 99
== END 2023-12-19 00:47 | disposition home or self-care (01) ==
LOC: MW.ED 15:44
DX: R07.89 Other chest pain (principal); R10.11 Right upper quadrant pain; Z79.899 Other long term (current) drug therapy; Z91.018 Allergy to other foods
CPT/HCPCS: 36415; 74177; 76705; 80053; 81003; 83690; 83735; 84484; 85025; 85610; 85730; 87086; 93005; 96361; 96374; 96375; 96376; 99285; A9270; J1170; J2405; J3490; J7030; Q9967; 93010; 99284